=== PATIENT | female | born 1940 | race Caucasian/White ===

== ENCOUNTER 2021-10-21 10:02 | Outpatient (CLI) | payer OTHER ==
[~2021-10-21 10:02] MED LIST: AMOX1TAB5 PO; ATENOLOL50 MG; ATENOLOL50 MG PO; HYOSCYAMINE0.125 M1 SL; INTESTINEX1 CA1 PO; NABUMETONE500 MG PO; OXYC1TAB9 PO; PERCOCET 5/3251 TAB PO; PROTONIX40 MG PO; Synthroid PO; [UNRECOGNIZED DRUG - OTHER]
== END 2021-10-21 10:03 | disposition home or self-care (01) ==
LOC: SONOGRAMA 10:02
PROVIDERS: ATTEND Pathology Anatomic Pathology & Clinical Pathology
DX: C73 Malignant neoplasm of thyroid gland (principal); E04.2 Nontoxic multinodular goiter

== ENCOUNTER → 2021-12-12 | Outpatient (CLI) | payer OTHER | END | disposition home or self-care (01) | LOC: SONOGRAMA 07:47 | PROVIDERS: ATTEND Pathology Anatomic Pathology & Clinical Pathology | DX: D34 Benign neoplasm of thyroid gland (principal); E07.9 Disorder of thyroid, unspecified; E04.1 Nontoxic single thyroid nodule ==

== ENCOUNTER 2022-03-05 05:10 | Day surgery (SDC) | payer OTHER ==
[~2022-03-05 05:10] MED LIST changes: +B12 ACTIVE1000 MCG PO; +COZAAR100 MG PO; +METFORMIN HCL500 M3 PO; +SYNTHROID75 MCG PO; +TOPROL XL25 M1 PO
[2022-03-05] MEDS ORDERED: PERCOCET 5-3251 EACH PO (09:20)
== END 2022-03-05 11:45 | disposition home or self-care (01) ==
LOC: CIR.AMB 05:10
PROVIDERS: ATTEND Surgery
DX: C73 Malignant neoplasm of thyroid gland (principal); E04.1 Nontoxic single thyroid nodule; E06.9 Thyroiditis, unspecified; I10 Essential (primary) hypertension; E03.9 Hypothyroidism, unspecified; Z20.822 Contact with and (suspected) exposure to COVID-19

== ENCOUNTER 2022-10-08 07:56 | Outpatient (CLI) | payer OTHER ==
[~2022-10-08 07:56] MED LIST changes: +PERCOCET 5-3251 EACH PO
== END 2022-10-08 07:59 | disposition home or self-care (01) ==
LOC: TOM 07:56
DX: R19.5 Other fecal abnormalities (principal); Z12.11 Encounter for screening for malignant neoplasm of colon